=== PATIENT | male | born 1965 | race Caucasian/White ===

== ENCOUNTER 2021-11-20 12:34 | Emergency (ER) | payer BC ==
[~2021-11-20] VITALS: Ht 198.1 cm; Wt 122.5 kg
[2021-11-20] MEDS ORDERED: TAMSULOSIN HCL0.4 MG PO (14:56)
[2021-11-20] MEDS ORDERED: METFORMIN HCL500 M1 PO (14:56)
[2021-11-20] MEDS ORDERED: LOSARTAN POTAS100 MG PO (14:56)
[2021-11-20] MEDS ORDERED: EZETIMIBE10 MG PO (14:56)
[2021-11-20] MEDS ORDERED: ROSUVASTATIN CA40 MG PO (14:56)
== END 2021-11-20 19:40 | disposition home or self-care (01) ==
LOC: ER 12:34
DX: S61.217A Laceration without foreign body of left little finger without damage to nail, initial encounter (principal); W18.39XA Other fall on same level, initial encounter; Y93.89 Activity, other specified; Y92.832 Beach as the place of occurrence of the external cause; S63.259A Unspecified dislocation of unspecified finger, initial encounter

== ENCOUNTER → 2021-11-28 | Emergency (ER) | payer BC ==
[~2021-11-28] VITALS: Ht 182.9 cm; Wt 98.4 kg
[~2021-11-28] MED LIST: EZETIMIBE10 MG PO; LOSARTAN POTAS100 MG PO; METFORMIN HCL500 M1 PO; ROSUVASTATIN CA40 MG PO; TAMSULOSIN HCL0.4 MG PO
== END | disposition left against medical advice (07) ==
LOC: ER 08:10
DX: Z53.21 Procedure and treatment not carried out due to patient leaving prior to being seen by health care provider (principal)